=== PATIENT | male | born 2000 | race Caucasian/White ===

== ENCOUNTER 2020-09-26 16:16 | Inpatient (IN) | payer BC ==
[2020-09-26] MEDS ORDERED: VANCOMYCIN 1,000 MG in DEXTROSE 5%-WATER - 250 ML IVPB ONE (18:29)
[2020-09-26] MEDS ORDERED: VANCOMYCIN 1 GRAM (PRE-DOCKED) 1,000 MG/250 ML BAG IVPB ONE (20:30)
[2020-09-26 21:12] LABS: POTASSIUM 5.3 mmol/L (3.5-5.1)
[2020-09-26 21:13] LABS: CALCIUM 9.6 mg/dL (8.5-10.1)
[2020-09-26 21:14] LABS: ALBUMIN 3.9 g/dl (3.4-5.0); BLOOD UREA NITROGEN 14.4 mg/dL (7-18)
[2020-09-26 21:17] LABS: CREATININE 0.9 mg/dL (0.55-1.3)
[2020-09-26 21:19] LABS: BILIRUBIN,TOTAL 0.7 mg/dL (0.2-1); TOT PROT 8.2 g/dl (6.4-8.2)
[2020-09-26 22:15] LABS: BASO % 0.5 % (0-2.0); EOS % 1.8 % (0-4.5); HEMATOCRIT 43.7 % (35.4-49); HEMOGLOBIN 14.9 GM/dL (11.7-16.9); LYMPH % 22.2 % (8-40); MCH 29.7 pg (25.7-33.7); MEAN CELL VOLUME 87.3 fl (80-96); MONO % 6.8 % (3.8-10.2); NEUT % 68.7 % (42.8-82.8); PLATELET COUNT 229 K/MM3 (134-434); RDW 13.1 % (11.9-15.9); WHITE BLOOD COUNT 10.7 K/mm3 (4.0-10.0)
[2020-09-26 22:16] LABS: URINE APPEARANCE CLEAR; URINE BILIRUBIN NEGATIVE (NEGATIVE); URINE COLOR YELLOW; URINE GLUCOSE (UA) NEGATIVE (NEGATIVE); URINE KETONE NEGATIVE (NEGATIVE); URINE LEUK ESTERASE NEGATIVE (NEGATIVE); URINE NITRITE NEGATIVE (NEGATIVE); URINE PROTEIN NEGATIVE (NEGATIVE); URINE UROBILINOGEN 0.2 mg/dL (0.2-1.0)
[2020-09-26] MEDS ORDERED: PIPERACILLIN/TAZOB 3.375 GM 3.375 GM in DEXTROSE 5%-WATER - 50 ML IVPB ONE (23:25)
[2020-09-27] MEDS ORDERED: PIPERACILLIN/TAZOB 3.375 GM 3.375 GM/50 ML BAG IVPB ONE ×4 (00:31→21:40)
[2020-09-27] MEDS: PIPERACILLIN/TAZOB 3.375 GM 3.375 GM in DEXTROSE 5%-WATER - 50 ML IVPB SCH ×3 (07:35→21:55)
[2020-09-27 08:49] LABS: BASO % 0.4 % (0-2.0); HEMATOCRIT 40.2 % (35.4-49); HEMOGLOBIN 13.8 GM/dL (11.7-16.9); MCH 29.7 pg (25.7-33.7); MCHC 34.3 g/dl (32.0-35.9); MEAN CELL VOLUME 86.6 fl (80-96); MEAN PLT VOLUME 10.1 fl (7.5-11.1); MONO % 8.2 % (3.8-10.2); NEUT % 63.4 % (42.8-82.8); PLATELET COUNT 202 K/MM3 (134-434); RBC 4.64 M/mm3 (4.00-5.60); RDW 13.1 % (11.9-15.9); WHITE BLOOD COUNT 8.5 K/mm3 (4.0-10.0)
[2020-09-27 09:13] LABS: CHLORIDE 107 mmol/L (98-107); SODIUM 140 mmol/L (136-145)
[2020-09-27 09:14] LABS: CALCIUM 9.2 mg/dL (8.5-10.1)
[2020-09-27 09:15] LABS: ANION GAP 6 MMOL/L (8-16); CO2 27 mmol/L (21-32); GLUCOSE,RANDOM 108 mg/dL (74-106)
[2020-09-27 09:18] LABS: CREATININE 0.9 mg/dL (0.55-1.3)
[2020-09-27 09:23] LABS: ALBUMIN 3.6 g/dl (3.4-5.0); BLOOD UREA NITROGEN 13.7 mg/dL (7-18); CALCIUM 9.2 mg/dL (8.5-10.1); MAGNESIUM 2.2 mg/dL (1.8-2.4)
[2020-09-27 09:27] LABS: BILIRUBIN,TOTAL 0.5 mg/dL (0.2-1); CREATININE 0.9 mg/dL (0.55-1.3); PHOSPHOROUS 4.6 mg/dL (2.5-4.9); TOT PROT 7.1 g/dl (6.4-8.2)
[2020-09-27] MEDS ORDERED: ENOXAPARIN NA (PORCINE) 40 MG/0.4 ML DISP.SYRIN SQ SCH (10:00)
[2020-09-27] MEDS ORDERED: ENOXAPARIN NA (PORCINE) 40 MG/0.4 ML DISP.SYRIN SQ ONE (12:42)
[2020-09-27] MEDS: VANCOMYCIN HCL 1,500 MG in DEXTROSE 5%-WATER - 500 ML IVPB SCH (12:42)
[2020-09-27] MEDS ORDERED: VANCOMYCIN 1 GRAM (PRE-DOCKED) 1,000 MG/250 ML BAG IVPB ONE (12:42)
[2020-09-28] MEDS: VANCOMYCIN HCL 1,500 MG in DEXTROSE 5%-WATER - 500 ML IVPB SCH (02:07)
[2020-09-28 04:18] VITALS: BMI 32.5
[2020-09-28] MEDS: PIPERACILLIN/TAZOB 3.375 GM 3.375 GM in DEXTROSE 5%-WATER - 50 ML IVPB SCH (06:39)
[2020-09-28] MEDS ORDERED: VANCOMYCIN HCL 1,500 MG in DEXTROSE 5%-WATER - 500 ML IVPB SCH (08:00)
[2020-09-28] MEDS ORDERED: LIDOCAINE HCL 1%, 10 MG/ML (20ML VIAL) ONE ×2 (08:37→09:16)
[2020-09-28] MEDS ORDERED: MIDAZOLAM HCL 2 MG/2 ML SINGLE DOSE VIAL ONE (08:44)
[2020-09-28] MEDS ORDERED: PIPERACILLIN/TAZOB 3.375 GM 3.375 GM in DEXTROSE 5%-WATER - 50 ML IVPB SCH (09:00)
[2020-09-28 09:01] LABS: BASO % 0.4 % (0-2.0); EOS % 2.5 % (0-4.5); HEMATOCRIT 43.1 % (35.4-49); HEMOGLOBIN 14.5 GM/dL (11.7-16.9); LYMPH % 27.5 % (8-40); MCH 29.6 pg (25.7-33.7); MCHC 33.7 g/dl (32.0-35.9); MEAN CELL VOLUME 87.8 fl (80-96); MEAN PLT VOLUME 10.3 fl (7.5-11.1); MONO % 7.2 % (3.8-10.2); NEUT % 62.4 % (42.8-82.8); PLATELET COUNT 206 K/MM3 (134-434); RBC 4.91 M/mm3 (4.00-5.60); RDW 13.2 % (11.9-15.9); WHITE BLOOD COUNT 8.8 K/mm3 (4.0-10.0)
[2020-09-28] MEDS ORDERED: PROPOFOL 20 ML ONE ×2 (09:06→09:22)
[2020-09-28] MEDS ORDERED: LIDOCAINE HCL 1%, 10 MG/ML (20ML VIAL) INF ONE (09:18)
[2020-09-28 09:26] LABS: POTASSIUM 4.2 mmol/L (3.5-5.1)
[2020-09-28 09:27] LABS: BLOOD UREA NITROGEN 13.1 mg/dL (7-18); CALCIUM 9.3 mg/dL (8.5-10.1)
[2020-09-28 09:30] LABS: CREATININE 0.8 mg/dL (0.55-1.3)
[2020-09-28 20:07] LABS: HEP B CORE AB, TOT Negative (Negative)
[2020-09-29] MEDS: AMINO ACIDS/PROTEIN HYDROLYS 30 ML LIQUID.PKT PO SCH (10:32)
[2020-09-29] MEDS: MULTIVITAMINS (DAILY MVI) TABLET (FP) PO SCH (10:32)
[2020-09-29 11:38] LABS: BASO % 0.4 % (0-2.0); EOS % 2.2 % (0-4.5); HEMATOCRIT 42.9 % (35.4-49); HEMOGLOBIN 14.6 GM/dL (11.7-16.9); LYMPH % 21.4 % (8-40); MCH 29.6 pg (25.7-33.7); MONO % 6.9 % (3.8-10.2); NEUT % 69.1 % (42.8-82.8); PLATELET COUNT 202 K/MM3 (134-434); RBC 4.93 M/mm3 (4.00-5.60); WHITE BLOOD COUNT 8.1 K/mm3 (4.0-10.0)
[2020-09-29 12:06] LABS: CALCIUM 9.6 mg/dL (8.5-10.1)
[2020-09-29 12:07] LABS: BLOOD UREA NITROGEN 9.5 mg/dL (7-18); MAGNESIUM 2.1 mg/dL (1.8-2.4)
[2020-09-29 12:08] LABS: ALBUMIN 3.7 g/dl (3.4-5.0)
[2020-09-29 12:10] LABS: CREATININE 0.8 mg/dL (0.55-1.3)
[2020-09-29 12:12] LABS: BILIRUBIN,TOTAL 0.6 mg/dL (0.2-1); PHOSPHOROUS 3.4 mg/dL (2.5-4.9); TOT PROT 7.5 g/dl (6.4-8.2)
[2020-09-30 08:25] LABS: POTASSIUM 4.2 mmol/L (3.5-5.1)
[2020-09-30 08:42] LABS: CALCIUM 9.7 mg/dL (8.5-10.1)
[2020-09-30 08:43] LABS: MAGNESIUM 2.2 mg/dL (1.8-2.4)
[2020-09-30 08:46] LABS: CREATININE 0.9 mg/dL (0.55-1.3); PHOSPHOROUS 4.6 mg/dL (2.5-4.9)
[2020-09-30 08:47] LABS: TOT PROT 7.7 g/dl (6.4-8.2)
[2020-09-30 08:51] LABS: BILIRUBIN,TOTAL 1.1 mg/dL (0.2-1)
[2020-09-30 09:05] LABS: BASO % 1.2 % (0-2.0); EOS % 2.2 % (0-4.5); HEMATOCRIT 44.1 % (35.4-49); HEMOGLOBIN 15.1 GM/dL (11.7-16.9); LYMPH % 23.9 % (8-40); MCH 29.7 pg (25.7-33.7); MCHC 34.3 g/dl (32.0-35.9); MEAN CELL VOLUME 86.6 fl (80-96); MEAN PLT VOLUME 10.2 fl (7.5-11.1); MONO % 7.5 % (3.8-10.2); NEUT % 65.2 % (42.8-82.8); PLATELET COUNT 207 K/MM3 (134-434); RBC 5.09 M/mm3 (4.00-5.60); RDW 12.8 % (11.9-15.9); WHITE BLOOD COUNT 10.8 K/mm3 (4.0-10.0)
[2020-09-30] MEDS: AMINO ACIDS/PROTEIN HYDROLYS 30 ML LIQUID.PKT PO SCH (11:15)
[2020-09-30] MEDS: MULTIVITAMINS (DAILY MVI) TABLET (FP) PO SCH (11:15)
[2020-09-30] MEDS: PIPERACILLIN/TAZOB 3.375 GM 3.375 GM in DEXTROSE 5%-WATER - 50 ML IVPB SCH ×2 (12:49→12:50)
[2020-09-30] MEDS: VANCOMYCIN HCL 1,500 MG in DEXTROSE 5%-WATER - 500 ML IVPB SCH (12:50)
[2020-09-30] MEDS: CEFTRIAXONE 2 GM in DEXTROSE 5%-WATER 100 ML IVPB SCH (15:15)
[2020-10-01 07:49] LABS: ALBUMIN 3.7 g/dl (3.4-5.0); BLOOD UREA NITROGEN 17.7 mg/dL (7-18); CALCIUM 9.5 mg/dL (8.5-10.1)
[2020-10-01 07:53] LABS: CREATININE 0.9 mg/dL (0.55-1.3); TOT PROT 7.4 g/dl (6.4-8.2)
[2020-10-01 07:59] LABS: BILIRUBIN,TOTAL 0.3 mg/dL (0.2-1)
[2020-10-01] MEDS: CEFTRIAXONE 2 GM in DEXTROSE 5%-WATER 100 ML IVPB SCH (09:19)
[2020-10-01] MEDS: MULTIVITAMINS (DAILY MVI) TABLET (FP) PO SCH (09:19)
[2020-10-01] MEDS: AMINO ACIDS/PROTEIN HYDROLYS 30 ML LIQUID.PKT PO SCH (09:19)
[2020-10-02] MEDS: CEFTRIAXONE 2 GM in DEXTROSE 5%-WATER 100 ML IVPB SCH (10:20)
[2020-10-02] MEDS: AMINO ACIDS/PROTEIN HYDROLYS 30 ML LIQUID.PKT PO SCH (10:20)
[2020-10-02] MEDS: MULTIVITAMINS (DAILY MVI) TABLET (FP) PO SCH (10:20)
[2020-10-03] MEDS: AMINO ACIDS/PROTEIN HYDROLYS 30 ML LIQUID.PKT PO SCH (09:00)
[2020-10-03] MEDS: MULTIVITAMINS (DAILY MVI) TABLET (FP) PO SCH (09:00)
[2020-10-03] MEDS: CEFTRIAXONE 2 GM in DEXTROSE 5%-WATER 100 ML IVPB SCH (09:01)
[2020-10-03 09:32] LABS: HEMATOCRIT 42.4 % (35.4-49); HEMOGLOBIN 14.4 GM/dL (11.7-16.9); MCH 29.5 pg (25.7-33.7); MCHC 33.9 g/dl (32.0-35.9); MEAN PLT VOLUME 10.6 fl (7.5-11.1); PLATELET COUNT 206 K/MM3 (134-434); RBC 4.88 M/mm3 (4.00-5.60); RDW 13.2 % (11.9-15.9); WHITE BLOOD COUNT 10.7 K/mm3 (4.0-10.0)
[2020-10-03 09:55] LABS: POTASSIUM 4.2 mmol/L (3.5-5.1)
[2020-10-03 10:11] LABS: ALBUMIN 3.7 g/dl (3.4-5.0); BLOOD UREA NITROGEN 16.1 mg/dL (7-18); CALCIUM 9.6 mg/dL (8.5-10.1)
[2020-10-03 10:18] LABS: CREATININE 0.7 mg/dL (0.55-1.3)
[2020-10-03 10:19] LABS: PHOSPHOROUS 4.9 mg/dL (2.5-4.9); TOT PROT 7.3 g/dl (6.4-8.2)
[2020-10-03 10:20] LABS: BILIRUBIN,TOTAL 0.4 mg/dL (0.2-1)
[2020-10-03 14:01] VITALS: BP 128/79; PULSE 69; TEMP 98.2
== END 2020-10-03 14:44 | disposition home or self-care (01) | DRG 312 ==
LOC: JER 16:16 → JERBED 23:27 → J5WEST-2 09-28 04:02 → J7W 10-03 11:43 → UNDODISIN 10-03 14:44
PROVIDERS: ADMIT Internal Medicine
PROC: 0HBRXZZ Excision of Toe Nail, External Approach (ICD-10-PCS; 2020-09-28)
PROC: 0HBNXZZ Excision of Left Foot Skin, External Approach (ICD-10-PCS; 2020-09-28)
PROC: 0HBRXZZ Excision of Toe Nail, External Approach (ICD-10-PCS; 2020-09-28)
PROC: 0HDRXZZ Extraction of Toe Nail, External Approach (ICD-10-PCS; 2020-09-28)
PROC: 0HDRXZZ Extraction of Toe Nail, External Approach (ICD-10-PCS; 2020-09-28)
PROC: 0HDRXZZ Extraction of Toe Nail, External Approach (ICD-10-PCS; 2020-09-28)
PROC: 0HDRXZZ Extraction of Toe Nail, External Approach (ICD-10-PCS; 2020-09-28)
PROC: 0HBMXZZ Excision of Right Foot Skin, External Approach (ICD-10-PCS; 2020-09-28)
PROC: 0HBRXZZ Excision of Toe Nail, External Approach (ICD-10-PCS; principal; 2020-09-28 08:30)
PROC: 0HBRXZZ Excision of Toe Nail, External Approach (ICD-10-PCS; 2020-09-28 08:30)
PROC: 02HV33Z Insertion of Infusion Device into Superior Vena Cava, Percutaneous Approach (ICD-10-PCS; 2020-09-30)
PROC: B518ZZA Fluoroscopy of Superior Vena Cava, Guidance (ICD-10-PCS; 2020-09-30)
DX: M86.171 Other acute osteomyelitis, right ankle and foot (principal); L03.031 Cellulitis of right toe; L03.032 Cellulitis of left toe; M86.172 Other acute osteomyelitis, left ankle and foot; K76.0 Fatty (change of) liver, not elsewhere classified; A49.01 Methicillin susceptible Staphylococcus aureus infection, unspecified site; E66.9 Obesity, unspecified; Z68.32 Body mass index [BMI] 32.0-32.9, adult; I10 Essential (primary) hypertension; J35.1 Hypertrophy of tonsils; R74.01 Elevation of levels of liver transaminase levels; R00.0 Tachycardia, unspecified; L60.0 Ingrowing nail
CPT/HCPCS: 36415; 36569; 71046-TC-FY; 73630-TC-LT; 73630-TC-RT-FY; 73718-TC-LT; 73718-TC-RT; 76705-TC; 80048; 80053; 81003; 83036; 83735; 84100; 84484; 85025; 85027; 86704; 86706; 86707; 86708; 86709; 86803; 87070; 87077; 87186; 87205; 87340; 88300-TC; 88305-TC; 93005; 93010; 94760; 99285-25; C9803; U0003